=== PATIENT | male | born 1965 | race Caucasian/White ===

== ENCOUNTER → 2016-11-23 | Outpatient (CLI) | payer MEDICAID ==
--- NOTE | 2016-11-23 21:34 | XCELERA REPORT ---
[address] [address] Transthoracic Echocardiogram Report Name: SRAVANI DAO Age: 51 yrs Gender: Male : 1965 Patient Status: Outpatient Patient Location: Study Date: 11/23/2016 01:31 PM Height: 73 in Weight: 225 lb BSA: 2.3 m2 Reason For Study: ABN EKG Ordering Physician: NILTON NORRIS Performed By: Shyann Bello Interpretation Summary The left ventricular ejection fraction is within normal limits. Doppler measurements suggest impaired left ventricular relaxation, which is associated with grade I/IV or mild diastolic dysfunction There is borderline concentric left ventricular hypertrophy. The left ventricle is grossly normal size. Wall motion cannot be accurately commented on, but no definite regional wall motion abnormalities noted. The right ventricle is mildly dilated. The right ventricle appears to be hypertrophied The right ventricular systolic function is normal. The left atrial size is normal. The right atrium is normal in size There is no mitral valve stenosis. There is a trace amount of mitral regurgitation There is no aortic valve stenosis There is a mild amount of aortic regurgitation There is a trace amount of tricuspid regurgitation Tricuspid regurgitation jet envelope not well defined to measure RV systolic pressure accurately. There is no pericardial effusion. MMode/2D Measurements \T\ Calculations RVDd: 2.8 cm LVIDd: 6.0 cm FS: 35.2 % Ao root diam: 4.7 cm IVSd: 0.96 cm LVIDs: 3.9 cm EDV(Teich): 178.2 ml LVPWd: 0.97 cm ESV(Teich): 64.8 ml Ao root area: 17.4 cm2 EF(Teich): 63.6 % LA dimension: 3.4 cm LVOT diam: 2.6 cm LVOT area: 5.4 cm2 Doppler Measurements \T\ Calculations MV E max alfonso: MV P1/2t max alfonso: Ao V2 max: AI max alfonso: 65.6 cm/sec 66.1 cm/sec 145.9 cm/sec 303.0 cm/sec MV A max alfonso: MV P1/2t: 70.1 msec Ao max PG: AI max P.5 cm/sec MVA(P1/2t): 3.1 cm2 8.5 mmHg 36.7 mmHg MV E/A: 0.85 MV dec slope: MART(V,D): 3.6 cm2 AI dec slope: 276.2 cm/sec2 139.1 cm/sec2 MV dec time: AI P1/2t: 0.24 sec 638.0 msec LV V1 max PG: PA V2 max: TR max alfonso: 3.7 mmHg 78.5 cm/sec 212.8 cm/sec LV V1 max: PA max P.5 mmHg TR max P.3 cm/sec 18.1 mmHg Left Ventricle The left ventricle is grossly normal size. There is borderline concentric left ventricular hypertrophy. The left ventricular ejection fraction is within normal limits. Doppler measurements suggest impaired left ventricular relaxation, which is associated with grade I/IV or mild diastolic dysfunction. Wall motion cannot be accurately commented on, but no definite regional wall motion abnormalities noted. Right Ventricle The right ventricle is mildly dilated. The right ventricle appears to be hypertrophied. The right ventricular systolic function is normal. Atria The right atrium is normal in size. The left atrial size is normal. Interarterial septum not well visualized and not well dopplered. Cannot comment on ASD/PFO presence. Mitral Valve The mitral valve leaflets are sclerotic, but show no functional abnormalities. There is no mitral valve stenosis. There is a trace amount of mitral regurgitation. Aortic Valve The aortic valve is mildly calcified. There is no aortic valve stenosis. There is a mild amount of aortic regurgitation. Tricuspid Valve The tricuspid valve is not well visualized, but is grossly normal. There is no tricuspid stenosis. There is a trace amount of tricuspid regurgitation. Tricuspid regurgitation jet envelope not well defined to measure RV systolic pressure accurately. Pulmonic Valve The pulmonic valve is not well visualized. Great Vessels The aortic root is not well visualized. The inferior vena cava appeared normal and decreased > 50% with respiration (RAP 5-10 mmHg). Effusions There is no pericardial effusion. : NILTON NORRIS > Rose Bishop
== END ==
LOC: SP 13:22
PROVIDERS: ATTEND Family Medicine
DX: R94.31 Abnormal electrocardiogram [ECG] [EKG] (principal)
CPT/HCPCS: 93306

== ENCOUNTER → 2016-11-28 | Outpatient (CLI) | payer MEDICAID ==
[2016-11-28 18:01] LABS: ADD HIVPANEL? NO; HIV (1 AND 2) ANTIBODY NEGATIVE (NEGATIVE)
== END ==
LOC: OD 15:33
PROVIDERS: ATTEND Plastic Surgery
DX: Z01.812 Encounter for preprocedural laboratory examination (principal); Z11.4 Encounter for screening for human immunodeficiency virus [HIV]
CPT/HCPCS: 36415; 80074; 86701

== ENCOUNTER → 2017-01-12 | Outpatient (CLI) | payer MEDICAID ==
[2017-01-12 15:16] LABS: ALANINE AMINOTRANSFERASE 19 U/L (21-72); ALBUMIN 3.8 g/dL (3.5-5.0); ALKALINE PHOSPHATASE 68 U/L (38-126); ANION GAP 8 (5-19); ASPARTATE AMINO TRANSFERASE 18 U/L (17-59); BILIRUBIN,DIRECT 0.1 mg/dL (0.0-0.4); BILIRUBIN,TOTAL 0.2 mg/dL (0.2-1.3); BLOOD UREA NITROGEN 7 mg/dL (7-20); CALCIUM 9.8 mg/dL (8.4-10.2); CARBON DIOXIDE 25 mmol/L (22-30); CHLORIDE 109 mmol/L (98-107); CREATININE RESULT 1.03 mg/dL (0.52-1.25); GLUCOSE 96 mg/dL (75-110); POTASSIUM 4.5 mmol/L (3.6-5.0); SODIUM 142.4 mmol/L (137-145); TOTAL PROTEIN 6.7 g/dL (6.3-8.2)
[2017-01-15 10:36] LABS: HEPATITIS C QUANTITATION HCV Not Detected IU/mL (.)
== END ==
LOC: OD 13:54
PROVIDERS: ATTEND Specialist
DX: B18.2 Chronic viral hepatitis C (principal); R10.9 Unspecified abdominal pain
CPT/HCPCS: 36415; 80053; 87522

== ENCOUNTER → 2017-02-01 | Outpatient (CLI) | payer MEDICAID ==
[2017-02-02 10:56] LABS: ALANINE AMINOTRANSFERASE 15 U/L (21-72); ALBUMIN 4.1 g/dL (3.5-5.0); ALKALINE PHOSPHATASE 80 U/L (38-126); ASPARTATE AMINO TRANSFERASE 23 U/L (17-59); BILIRUBIN,DIRECT 0.6 mg/dL (0.0-0.4); BILIRUBIN,TOTAL 0.8 mg/dL (0.2-1.3); TOTAL PROTEIN 7.5 g/dL (6.3-8.2)
[2017-02-03 06:39] LABS: HEPATITIS C VIRUS AB >11.0 s/co ratio (0.0-0.9)
[2017-02-04 10:37] LABS: HEPATITIS C QUANTITATION HCV Not Detected IU/mL (.)
== END ==
LOC: OD 17:32
PROVIDERS: ATTEND Plastic Surgery
DX: B19.20 Unspecified viral hepatitis C without hepatic coma (principal)
CPT/HCPCS: 36415; 80076; 81270; 86803; 86804; 87522

== ENCOUNTER 2017-03-22 23:24 | Emergency (ER) | payer MEDICAID ==
--- NOTE | 2017-03-23 01:47 | ER Document Report ---
ED General - General Chief Complaint: Fall Injury Stated Complaint: FALL/HEAD INJURY Time Seen by Provider: 03/23/17 01:23 Notes: Patient is a 52-year-old male presents with complaint of. Patient has a prosthetic left leg. He is trying to get up and he fell. He says it is a new prosthesis and is getting used to it. He denies any chest pain headache or lightheadedness prior to the fall. He says when he fell he hit the front of his head on the floor and did briefly pass out. Complaints of headache small cut to the forehead. Some neck pain. No other complaints at this time. TRAVEL OUTSIDE OF THE [place] IN LAST 30 DAYS: No - Related Data Allergies/Adverse Reactions: tobramycin [Tobramycin] Allergy (Intermediate, Verified 10/05/16 07:46) Seizures tropicamide [Tropicamide] Allergy (Intermediate, Verified 10/05/16 07:46) Seizures Past Medical History - Social History Smoking Status: Unknown if Ever Smoked Frequency of alcohol use: None Drug Abuse: None Family History: Reviewed & Not Pertinent Patient has suicidal ideation: No Patient has homicidal ideation: No - Past Medical History Cardiac Medical History: Denies: Hx Coronary Artery Disease, Hx Heart Attack, Hx Hypertension Pulmonary Medical History: Reports: Hx Pneumonia - 10 YRS AGO Denies: Hx Asthma, Hx Bronchitis, Hx COPD, Hx Tuberculosis Neurological Medical History: Reports: Hx Seizures - SEIZURE PADS ON AND IN PLACE. Denies: Hx Cerebrovascular Accident Renal/ Medical History: Denies: Hx Peritoneal Dialysis GI Medical History: Reports: Hx Gastroesophageal Reflux Disease, Hx Hiatal Hernia, Hx Irritable Bowel, Hx Ulcer. 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 Denies: Hx Colostomy, Hx Pacemaker - Immunizations Immunizations up to date: Yes Hx Diphtheria, Pertussis, Tetanus Vaccination: No Review of Systems - Review of Systems Notes: My Normal Review Basic REVIEW OF SYSTEMS: CONSTITUTIONAL : Denies fever, chills, or sweats. Denies recent illness. EENT: Denies eye, ear, throat, or mouth pain or symptoms. Denies nasal or sinus congestion. CARDIOVASCULAR: Denies chest pain. RESPIRATORY: Denies cough, cold, or chest congestion. Denies shortness of breath, difficulty breathing, or wheezing. GASTROINTESTINAL: Denies abdominal pain. Denies nausea, vomiting, or diarrhea. Denies constipation. Last BM: MUSCULOSKELETAL: Denies neck or back pain or joint pain or swelling. SKIN: Denies rash or skin lesions. NEUROLOGICAL: brief loss of consciousness. has aheadache. Denies weakness or paralysis or loss of use of either side. Denies problems with gait or speech. Denies sensory or motor loss. ALL OTHER SYSTEMS REVIEWED AND NEGATIVE. Physical Exam - Vital signs Vitals: Temp Pulse Resp BP Pulse Ox 98.1 F 64 16 141/77 H 98 03/22/17 23:32 03/22/17 23:32 03/22/17 23:32 03/22/17 23:32 03/22/17 23:32 - Notes Notes: General Appearance: Well nourished, alert, cooperative, no acute distress, mild obvious discomfort. Vitals: reviewed, See vital signs table. Head: small, nongaping laceartion over forehead. Eyes: PERRL, EOMI, Conjuctiva clear Mouth: No decreasd moisture Neck: Supple, some midline neck tenderness to palpation Lungs: No wheezing, No rales, No rhonci, No accessory muscle use, good air exchange bilaterally. Heart: Normal rate, Regular rythm, No murmur, no rub Abdomen: Normal BS, soft, No rigidity, No abdominal tenderness, No guarding, no rebound, no abdominal masses, no organomegaly Extremities: strength 5/5 in all extremities, left below the knee amputation, good pulses in all extremities, no swelling or tenderness in the extremities, no edema. Skin: warm, dry, appropriate color, no rash Neuro: speech clear, oriented x 3, normal affect, responds appropriately to questions. Cranial nerves 2-12 are intact, distal sensation intact. Patient moves all extremities without difficulty Course - Vital Signs Vital signs: Temp Pulse Resp BP Pulse Ox 98.1 F 64 22 H 128/89 H 100 03/22/17 23:32 03/22/17 23:32 03/23/17 03:21 03/23/17 03:11 03/23/17 03:21 - Transfer of Care Notes: 03/23/17 03:26 CT scans are negative. He looks and feels well. Says he has no difficulty walking is putting on his prosthetic leg without any difficulty. Patient will be discharged home. He is encouraged to return to the ER if there is any redness or swelling to the area of the cut, if he has severe headache or vomiting, or she feels unwell. Patient agrees with plan and will be discharged home. Dictation of this chart was performed using voice recognition software; therefore, there may be some unintended grammatical errors. Procedures - Laceration/Wound Repair frontal laceration Wound length (cm): 2 Wound's Depth, Shape: Superficial, Linear Laceration pre-procedure: Other - peroxide Wound explored: Clean Wound Repaired With: Dermabond Complications: No Discharge - Discharge Clinical Impression: Fall Qualifiers: Encounter type: initial encounter Qualified Code(s): W19.XXXA - Unspecified fall, initial encounter Scalp laceration Qualifiers: Encounter type: initial encounter Qualified Code(s): S01.01XA - Laceration without foreign body of scalp, initial encounter Condition: Good Disposition: HOME, SELF-CARE Additional Instructions: Please wait 24 hours before cleaning the cut. Please clean it with soap and water after 24 hours. no scrubbing. Please return to the ER if you have worsening severe headaches, vomiting, or feel uwnell. Referrals: NILTON NORRIS MD [Primary Care Provider] - Follow up as needed
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
[2017-03-23] MEDS ORDERED: IBUPROFEN 600 MG TABLET PO ONE (03:19)
[2017-03-23 03:27] VITALS: BP 139/97
== END 2017-03-23 03:28 | disposition home or self-care (01) ==
LOC: ER 23:24
PROC: 0HQ0XZZ Repair Scalp Skin, External Approach (ICD-10-PCS; principal; 2017-03-22)
DX: S01.01XA Laceration without foreign body of scalp, initial encounter (principal); R51 Headache; W19.XXXA Unspecified fall, initial encounter
CPT/HCPCS: 99284; 70450; 72125; 12001; J3490

== ENCOUNTER → 2017-05-08 | Outpatient (CLI) | payer MEDICAID ==
--- NOTE | 2017-05-08 14:11 | RADIOLOGY REPORT (SQ) ---
EXAM DESCRIPTION: CHEST PA/LATERAL COMPLETED DATE/TIME: 05/08/2017 1:59 pm REASON FOR STUDY: CHRONIC OBSTRUCTIVE PULMONARY DISEASE, UNSPECIFIED COMPARISON: None. NUMBER OF VIEWS: Two view. TECHNIQUE: Frontal and lateral radiographic views of the chest acquired. LIMITATIONS: None. FINDINGS: LUNGS AND PLEURA: No opacities, masses or pneumothorax. No pleural effusion. MEDIASTINUM AND HILAR STRUCTURES: No masses or contour abnormalities. HEART AND VASCULATURE: Heart normal size. No evidence for failure. BONY STRUCTURES: No acute findings. HARDWARE: None. OTHER: No other significant finding. IMPRESSION: NO SIGNIFICANT RADIOGRAPHIC FINDING IN THE CHEST. TECHNICAL DOCUMENTATION: JOB ID: [id number] [employer]- All Rights Reserved
== END ==
LOC: OD 13:49
PROVIDERS: ATTEND Physician Assistant
DX: J44.9 Chronic obstructive pulmonary disease, unspecified (principal)
CPT/HCPCS: 71020

== ENCOUNTER 2017-06-18 22:20 | Emergency (ER) | payer OTHER, MEDICAID ==
[2017-06-19] MEDS ORDERED: HYDROCODONE/ACETAMINOPHEN 5-325 MG 6 TAB/DSPK PO PRN (00:24)
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
[2017-06-19 00:40] VITALS: BP 139/87
== END 2017-06-19 00:44 | disposition home or self-care (01) ==
LOC: ER 22:20
DX: R07.9 Chest pain, unspecified (principal); M25.512 Pain in left shoulder; M54.5 Low back pain; V43.52XA Car driver injured in collision with other type car in traffic accident, initial encounter; Z89.512 Acquired absence of left leg below knee; Z86.14 Personal history of Methicillin resistant Staphylococcus aureus infection
CPT/HCPCS: 99284

== ENCOUNTER 2017-06-28 19:41 | Emergency (ER) | payer OTHER, MEDICAID ==
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
[2017-06-28 22:12] LABS: ABSOLUTE BASOPHILS # (AUTO) 0.1 10^3/uL (0.0-0.2); ABSOLUTE EOSINOPHILS # (AUTO) 0.2 10^3/uL (0.0-0.6); ABSOLUTE LYMPHOCYTES (AUTO) 2.1 10^3/uL (0.5-4.7); ABSOLUTE MONOCYTES (AUTO) 1.6 10^3/uL (0.1-1.4); ABSOLUTE NEUT (AUTO) 8.8 10^3/uL (1.7-8.2); BASOPHILS % (AUTO) 0.9 % (0-2); EOSINOPHILS % (AUTO) 1.7 % (0-6); HEMATOCRIT 37.8 % (37.9-51.0); HGB HCT DIFFERENCE 1.2; LYMPHOCYTES % (AUTO) 16.1 % (13-45); MEAN CORPUSCULAR HEMOGLOBIN 28.9 pg (27.0-33.4); MEAN CORPUSCULAR HGB CONC 34.5 g/dL (32.0-36.0); MEAN CORPUSCULAR VOLUME 84 fl (80-97); MONOCYTES % (AUTO) 12.4 % (3-13); RED BLOOD COUNT 4.51 10^6/uL (4.35-5.55); RED CELL DISTRIBUTION WIDTH 16.3 % (11.5-14.0); SEGMENTED NEUTROPHILS % (AUTO) 68.9 % (42-78); WHITE BLOOD COUNT 12.8 10^3/uL (4.0-10.5)
[2017-06-28 22:33] LABS: ANION GAP 12 (5-19); BLOOD UREA NITROGEN 8 mg/dL (7-20); CALCIUM 9.4 mg/dL (8.4-10.2); CARBON DIOXIDE 27 mmol/L (22-30); CHLORIDE 102 mmol/L (98-107); CREATININE RESULT 0.95 mg/dL (0.52-1.25); GLUCOSE 79 mg/dL (75-110); POTASSIUM 3.8 mmol/L (3.6-5.0); SODIUM 140.7 mmol/L (137-145)
[2017-06-28] MEDS ORDERED: LIDOCAINE 1% INJ-PF (10 MG/ML) 30 ML SDV INFIL ONE (22:49)
[2017-06-28] MEDS ORDERED: SULFAMETHOXAZOLE/TRIMETHOPRIM 800-160 MG TABLET PO ONE (22:49)
[2017-06-28] MEDS ORDERED: CEFTRIAXONE INJ 1000 MG VIAL IM ONE (22:49)
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
[2017-06-29 00:52] VITALS: BP 124/81
== END 2017-06-28 23:30 | disposition home or self-care (01) ==
LOC: ER 19:41
DX: L03.116 Cellulitis of left lower limb (principal); L98.9 Disorder of the skin and subcutaneous tissue, unspecified; M79.605 Pain in left leg; Z89.512 Acquired absence of left leg below knee
CPT/HCPCS: 99283; 96372; 36415; 85025; 80048; J3490; J0696

== ENCOUNTER 2017-07-01 12:34 | Emergency (ER) | payer OTHER, MEDICAID ==
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
[2017-07-01 14:23] VITALS: BP 113/68
== END 2017-07-01 14:23 | disposition home or self-care (01) ==
LOC: ER 12:34
DX: L02.416 Cutaneous abscess of left lower limb (principal); Z89.512 Acquired absence of left leg below knee; R07.81 Pleurodynia
CPT/HCPCS: 71020; 99283

== ENCOUNTER 2017-11-06 17:43 | Emergency (ER) | payer MEDICAID ==
--- NOTE | 2017-11-06 19:43 | RADIOLOGY REPORT (SQ) ---
EXAM DESCRIPTION: KNEE RIGHT 3 VIEWS COMPLETED DATE/TIME: 11/06/2017 7:05 pm REASON FOR STUDY: fall COMPARISON: Right knee four views 03/15/2016 NUMBER OF VIEWS: Four views. TECHNIQUE: AP, lateral, and both oblique radiographic images acquired of the right knee. LIMITATIONS: None. FINDINGS: MINERALIZATION: Normal. BONES: No acute fracture or dislocation. No worrisome bone lesions. JOINT: No significant suprapatellar knee joint effusion. Mild prepatellar soft tissue swelling. SOFT TISSUES: Mild prepatellar soft tissue swelling. No radio-opaque foreign body. OTHER: No other significant finding. IMPRESSION: Mild prepatellar soft tissue swelling. TECHNICAL DOCUMENTATION: JOB ID: [id number] [employer]- All Rights Reserved
--- NOTE | 2017-11-06 19:45 | RADIOLOGY REPORT (SQ) ---
EXAM DESCRIPTION: ELBOW RIGHT OVER 2 VIEWS COMPLETED DATE/TIME: 11/06/2017 7:05 pm REASON FOR STUDY: fall COMPARISON: None. NUMBER OF VIEWS: Four views. TECHNIQUE: AP, lateral, and both oblique radiographic images acquired of the right elbow. LIMITATIONS: None. FINDINGS: MINERALIZATION: Normal. BONES: No acute fracture or dislocation. No worrisome bone lesions. JOINT: No elbow joint effusion. There is joint space narrowing and bony spurring at the radiohumeral and ulnohumeral joints and along the proximal radioulnar joint. No gross intra-articular loose bodi es. SOFT TISSUES: Dorsal elbow soft tissue swelling. No foreign body. OTHER: No other significant finding. IMPRESSION: Dorsal elbow soft tissue swelling without underlying fracture or joint effusion. Osteoarthritis right elbow TECHNICAL DOCUMENTATION: JOB ID: [id number] [employer]- All Rights Reserved
--- NOTE | 2017-11-06 20:22 | ER Document Report ---
ED Fall - General Chief Complaint: Fall Stated Complaint: FALL/ Time Seen by Provider: 11/06/17 19:20 Notes: Patient is a 52-year-old male who presents emergency department after a fall on Monday. Patient is a left lower extremity amputation from previous trauma. Patient states that his prosthetic had different cycle and so he fell and lost his balance landing on his right side. Patient admits to pain in his right elbow as well as his right knee. Patient states that he has been able to ambulate. His main concern was that he thought he had a subjective fever at home responded well to Tylenol for the past 2 days. He states that he can move his elbow with a little little sore he denies any significant redness but admits to swelling that is improved with a compression brace that he wore throughout the day. States that it feels a lot better afterwards. Otherwise he denies any numbness or tingling in his hand. Past medical history significant for osteoarthritis Primary care is with Dr. Norris. Has a follow-up visit tomorrow. TRAVEL OUTSIDE OF THE [place] IN LAST 30 DAYS: No - Related data Allergies/Adverse Reactions: tobramycin [Tobramycin] Allergy (Intermediate, Verified 11/06/17 17:45) Seizures tropicamide [Tropicamide] Allergy (Intermediate, Verified 11/06/17 17:45) Seizures Past Medical History - Social History Smoking Status: Smoker,Current Status Unk Family History: Reviewed & Not Pertinent - Past Medical History Cardiac Medical History: Denies: Hx Coronary Artery Disease, Hx Heart Attack, Hx Hypertension Pulmonary Medical History: Reports: Hx COPD - IN BEGINNING STAGES PER PT, NO MEDS YET, Hx Pneumonia - 10 YRS AGO Denies: Hx Asthma, Hx Bronchitis, Hx Tuberculosis Neurological Medical History: Reports: Hx Seizures - SEIZURE 5 YRS AGO FROM MED , NO SEIZURE IN 5 YRS. Denies: Hx Cerebrovascular Accident Renal/ Medical History: Denies: Hx Peritoneal Dialysis GI Medical History: Reports: Hx Gastroesophageal Reflux Disease, Hx Hiatal Hernia, Hx Irritable Bowel, Hx Ulcer. Denies: Hx Crohn's Disease, Hx Liver Failure, Hx Pancreatitis Musculoskeltal Medical History: Reports Hx Arthritis - BACK, Denies Hx Fibromyalgia, Denies Hx Multiple Sclerosis, Denies Hx Muscular Dystrophy, Reports Hx Musculoskeletal Trauma - w/ left BKA Psychiatric Medical History: Reports: Hx Bipolar Disorder, Hx Depression, Hx Schizophrenia Denies: Hx Dementia, Hx Post Traumatic Stress Disorder Traumatic Medical History: Reports: Hx Fractures - r arm, jaw, fingers Infectious Medical History: Reports: Hx MRSA Past Surgical History: Reports: Hx Orthopedic Surgery - Left hand, left BKA, Hx Tonsillectomy. Denies: Hx Colostomy, Hx Pacemaker - Immunizations Immunizations up to date: Yes Hx Diphtheria, Pertussis, Tetanus Vaccination: Yes Review of Systems - Review of Systems Constitutional: See HPI Cardiovascular: No symptoms reported Respiratory: No symptoms reported Gastrointestinal: No symptoms reported Musculoskeletal: See HPI Skin: See HPI Neurological/Psychological: No symptoms reported -: Yes All other systems reviewed and negative Physical Exam - Vital signs Vitals: Temp Pulse Resp BP Pulse Ox 99.2 F 103 H 14 109/71 96 11/06/17 17:49 11/06/17 17:49 11/06/17 17:49 11/06/17 17:49 11/06/17 17:49 - Notes Notes: PHYSICAL EXAM GENERAL: Alert, interacts well. HEAD: Normocephalic, atraumatic. EXTREMITIES: Moves all 4 extremities spontaneously. Full range of motion of the right elbow without any tenderness, deformity, edema. Shoulder full range of motion nontender, right wrist full range of motion nontender. Capillary refill less than 2 seconds in all upper extremity digits. Etcher Hand strength equal bilaterally. Right knee full range of motion nontender. Gait stable able to ambulate without assistance. No edema, radial and dorsalis pedis pulses 2/4 bilaterally. No cyanosis. NEUROLOGICAL: Alert and oriented x4. Normal speech. PSYCH: Normal affect, normal mood. SKIN: Warm, dry, normal turgor.Abrasion noted over the extensor surface of the right elbow without significant tenderness, mild surrounding erythema without induration. Course - Re-evaluation Re-evalutation: 11/06/17 20:21 Patient is a 52-year-old male who is hemodynamically stable, no acute distress and afebrile. Despite mild overlying erythema with associated abrasion, joint with low clinical suspicion for septic joint given patient with full range of motion, no significant tenderness, erythema. No evidence of a gout flare, dislocation, or fracture on exam and imaging. Vitals wnl. At this time, I do not see an indication for labs or further imaging. Will discharge with conservative measures, return precautions, and follow-up recommendations. - Vital Signs Vital signs: Temp Pulse Resp BP Pulse Ox 99.2 F 103 H 14 109/71 96 11/06/17 17:49 11/06/17 17:49 11/06/17 17:49 11/06/17 17:49 11/06/17 17:49 - Diagnostic Test Radiology reviewed: Image reviewed, Reports reviewed Discharge - Discharge Bad tableCondition: Good Disposition: HOME, SELF-CARE Additional Instructions: You do not have evidence of a fracture on today's xrays. Your pain is likely to do soft tissue swelling and inflammation. This can last up to 6 weeks before completely resolving. You should continue to apply ice to the area regularly, keep the affected area elevated, and take ibuprofen 600mg every 6 hours as needed for pain. You have also been given a antibiotic to prevent any significant infection in the right elbow. please return if you have worsening pain, weakness, numbness, notice increasing redness or swelling to the area, develop a fever, or have any other symptoms that are concerning to you. Prescriptions: Cephalexin Monohydrate [Keflex 500 mg Capsule] 500 mg PO QID #20 capsule Referrals: NILTON NORRIS MD [Primary Care Provider] - Follow up tomorrow
[2017-11-06] MEDS ORDERED: CEPHALEXIN 500 MG CAPSULE PO ONE (20:24)
[2017-11-06 20:36] VITALS: BP 110/78
== END 2017-11-06 20:36 | disposition home or self-care (01) ==
LOC: ER 17:43
DX: M25.521 Pain in right elbow (principal); M25.561 Pain in right knee; R50.9 Fever, unspecified; M79.89 Other specified soft tissue disorders; W19.XXXA Unspecified fall, initial encounter; Z89.512 Acquired absence of left leg below knee
CPT/HCPCS: 99283

== ENCOUNTER → 2017-11-29 | Outpatient (CLI) | payer MEDICAID ==
--- NOTE | 2017-11-29 17:44 | RADIOLOGY REPORT (SQ) ---
EXAM DESCRIPTION: MRI RT LOWER JOINT WITHOUT COMPLETED DATE/TIME: 11/29/2017 5:12 pm REASON FOR STUDY: M25.561 PAIN IN RIGHT KNEE M25.561 PAIN IN RIGHT KNEE COMPARISON: None. TECHNIQUE: Rightknee images acquired and stored on PACS. Multiplanar images include fat sensitive s equences as T1, water sensitive sequences as FST2 or STIR, cartilage sensitive sequences as FSPD, and gradient echo sequences. LIMITATIONS: None. FINDINGS: JOINT AND BURSAE: Small effusion. BONE CORTEX AND MARROW: No alteration of signal to suggest marrow replacement. No worrisome bone lesi ons. No occult fracture. ACL: Intact. No degeneration or ganglion cyst. PCL: Intact. MCL: Intact. No periligamentous edema or fluid. LCL: Intact. No periligamentous edema or fluid. MEDIAL MENISCUS: No tears. No abnormal signal. LATERAL MENISCUS: No tears. Mild posterior horn myxoid signal. MEDIAL COMPARTMENT: 5 mm focal area of moderate chondromalacia passed osteochondral irregularity in t he anteromedial trochlear groove portion of the femoral condyle, minimal reactive marrow edema. LATERAL COMPARTMENT: Cartilage shows mild medial trochlear groove chondromalacia. No bone bruises or reactive marrow edema. No osteophytes. PATELLA: Mild central patellar chondromalacia. No subchondral cysts. Medial and lateral retinacula in tact. EXTENSOR MECHANISM: Intact. Quadriceps tendon shows mild tendinosis at the superior patellar insertio n. The patella tendon is normal. SOFT TISSUES: Small Rodriguez cyst. Otherwise Adjacent muscles and subcutaneous tissues normal. Normal flow void in popliteal artery and vein. OTHER: No other significant finding. IMPRESSION: No evidence for meniscal or ligament tear. Quadriceps tendon shows mild tendinosis at th e superior patellar insertion. Small joint effusion. TECHNICAL DOCUMENTATION: JOB ID: [id number] [place]-72 2010 [employer]- All Rights Reserved
== END ==
LOC: RAD 16:26
PROVIDERS: ATTEND Orthopaedic Surgery
DX: M25.561 Pain in right knee (principal)

== ENCOUNTER → 2018-01-12 | Outpatient (CLI) | payer MEDICAID ==
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
== END ==
LOC: SP 10:31
PROVIDERS: ATTEND Family Medicine
DX: R60.0 Localized edema (principal)
CPT/HCPCS: 93971

== ENCOUNTER 2018-02-13 09:24 | Day surgery (SDC) | payer MEDICAID ==
[2018-01-30 13:32] LABS: HEMATOCRIT 46.8 % (37.9-51.0); HEMOGLOBIN 15.5 g/dL (13.5-17.0); MEAN CORPUSCULAR HGB CONC 33.2 g/dL (32.0-36.0); MEAN CORPUSCULAR VOLUME 88 fl (80-97); PLATELET COUNT 214 10^3/uL (150-450); RED BLOOD COUNT 5.35 10^6/uL (4.35-5.55); RED CELL DISTRIBUTION WIDTH 18.7 % (11.5-14.0); WHITE BLOOD COUNT 11.8 10^3/uL (4.0-10.5)
--- NOTE | 2018-01-30 13:32 | EKG REPORT ---
SEVERITY:- OTHERWISE NORMAL ECG - SINUS BRADYCARDIA : Confirmed by: Everardo Ritter MD 30-Jan-2018 13:32:09
[2018-01-30 13:46] LABS: INTERNATIONAL RATION (INR) 0.89; PROTHROMBIN TIME 12.5 SEC (11.4-15.4)
[2018-01-30 14:01] LABS: ANION GAP 13 (5-19); BLOOD UREA NITROGEN 13 mg/dL (7-20); CALCIUM 10.4 mg/dL (8.4-10.2); CARBON DIOXIDE 30 mmol/L (22-30); CHLORIDE 100 mmol/L (98-107); GLUCOSE 86 mg/dL (75-110); POTASSIUM 5.2 mmol/L (3.6-5.0)
[~2018-02-13 09:24] MED LIST: CEFAZOLIN 1 GM/D5W RTU 1 GM/50 ML RTUPB IV PRN; FENTANYL CITRATE INJ/PF 100 MCG/2 ML AMPUL ONE; LACTATED RINGERS 1000 ML IV PRN; LIDOCAINE 1%/EPINEPHRINE INJ 20 ML VIAL ONE; MIDAZOLAM 2 MG/2 ML INJ ONE; PROPOFOL INJ 200 MG/20 ML VIAL IV ONE; SODIUM BICARBONATE 8.4% INJ 50 MEQ/50 ML DISP.SYRIN ONE
[2018-02-13] MEDS ORDERED: FENTANYL CITRATE INJ/PF 100 MCG/2 ML AMPUL IV PRN ×3 (10:02)
[2018-02-13] MEDS ORDERED: ONDANSETRON HCL INJ/PF 4 MG/2 ML SDV IV PRN (10:02)
[2018-02-13] MEDS ORDERED: DIPHENHYDRAMINE HCL 50 MG/ML VIAL IV PRN (10:02)
--- NOTE | 2018-02-13 11:27 | Operative Report ---
Operative Report DATE OF SURGERY: 02/13/18 PREOPERATIVE DIAGNOSIS: Mass of the upper back POSTOPERATIVE DIAGNOSIS: Same OPERATION: Excision of mass of upper back with closure. Size 3.25 cm. Mass extended down through the deep fascia SURGEON: CHEKO VALERA ANESTHESIA: LMAC TISSUE REMOVED OR ALTERED: Large cyst of the back COMPLICATIONS: None ESTIMATED BLOOD LOSS: Minimal PROCEDURE: Location of the masses were identified before bringing the patient to the operating room. Patient was laid on the table in a prone position. The patient was then prepped with a Betadine scrub and a Betadine solution. The patient was then draped in a sterile and aseptic fashion. A timeout was performed after marking the areas to be resected. The area was anesthetized with 1% lidocaine with epinephrine and bicarb. We then went ahead and incised elliptically around the mass. The mass was then dissected 360 and removed in toto. Mass was removed from the subcutaneous tissue and it extended down into the deep fascia. The mass was rather densely adherent and scarred in position. [id number] we dissected and had a cut through the deep fascia in order to get it removed. We then obtained hemostasis with the bipolar. The wound was irrigated with a Betadine sterile water solution. Again hemostasis was confirmed. The closure was then performed closing the subcutaneous tissue with 3-0 Vicryl three-point sutures in order to obliterate the space that was created after the mass had been removed. The skin was closed with 3-0 PDS. Additional support 3-0 PDS sutures were placed in order to support the closure. Tincture benzoin Steri-Strips and light pressure dressing was applied Patient was then reversed from anesthesia and taken to the [facility] for recovery Patient tolerated procedure well there were no complications. This dictation was performed using [place] naturally speaking. If there are any inconsistencies please contact the surgeon. Subjective: No complaints Objective: Vital signs stable afebrile No bleeding Dressing intact Assessment and plan: Doing well. Elevate the operative site. Resume medications. Take antibiotics for 1 day Follow-up Full instructions were given to the patient and family and they understand Portions of this note may be dictated using [employer] voice recognition software. Occasional variations and spelling and vocabulary could be possible and are unintentional. Additionally, there is a chance that some errors may not be caught or corrected. Please notify the offer of any discrepancies noted or if any statements are unclear.
--- NOTE | 2018-02-13 11:29 | Discharge Summary ---
Discharge Summary (SDC) - Discharge Final Diagnosis: Large deep mass of the back extending subfascial Date of Surgery: 02/13/18 Condition: Good Treatment or Instructions: Leave the top dressing on for 2 days, then removed. Leave the steri-strip tapes on for 5 days, then removal. Then cleaning wound with peroxide and apply Neosporin/bacitracin 3 times per day. Antibiotics for 1 day, then discontinue. Elevate operative area to decrease swelling. Do not strain, or lift heavy objects. Call for excessive bleeding, increased temperature of 101, uncontrolled pain, or excessive nausea or vomiting. You may reach Dr. Hale through his office at [phone]. In the event of an emergency after hours, then contact Dr. Hale through [facility]. Return to the office for a postop check on . The time will be scheduled by the nursing staff of [facility] prior to discharge. Please give the patient a copy of their labs and EKG so they can bring this to their PMD. Thank you Portions of this note may be dictated using [employer] voice recognition software. Occasional variations and spelling and vocabulary could be possible and are unintentional. Additionally, there is a chance that some errors may not be caught or corrected. Please notify the offer of any discrepancies noted or if any statements are unclear. Referrals: NILTON NORRIS MD [Primary Care Provider] - Discharge Diet: As Tolerated Report the Following to Your Physician Immediately: Unusual Bleeding - Limited activity. Do not stretch the back. Top dressing off in 2 days. Leave Steri- Strips on unless they get contaminated until you are seen in the office. Use a waterproof dressing to cover the Steri-Strips when showering. Take antibiotics for 2 days before the surgery. Resume any medicines that you had stopped. Follow-up at my office.
[2018-02-13 13:45] VITALS: BP 125/76
== END 2018-02-13 13:15 | disposition home or self-care (01) ==
LOC: OROUT 09:24
PROVIDERS: ATTEND Plastic Surgery
DX: L72.3 Sebaceous cyst (principal); F17.210 Nicotine dependence, cigarettes, uncomplicated; M19.90 Unspecified osteoarthritis, unspecified site; G40.909 Epilepsy, unspecified, not intractable, without status epilepticus; Z79.899 Other long term (current) drug therapy; Z88.8 Allergy status to other drugs, medicaments and biological substances
CPT/HCPCS: 93005; 36415; 85027; 85610; 85730; 80048; 93010; 11404; J2250; J0690; J3010; J3490 ×2; J2704; 300

== ENCOUNTER → 2018-08-01 | Outpatient (CLI) | payer MEDICAID ==
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
== END ==
LOC: RAD 19:22
PROVIDERS: ATTEND Family Medicine
DX: M89.511 Osteolysis, right shoulder (principal); M19.011 Primary osteoarthritis, right shoulder

== ENCOUNTER 2019-12-26 16:59 | Emergency (ER) | payer MEDICAID, OTHER ==
[2019-12-26] MEDS ORDERED: ONDANSETRON HCL INJ/PF 4 MG/2 ML SDV IV ONE (17:21)
[2019-12-26] MEDS ORDERED: MORPHINE SULFATE 10 MG/ML INJ IV ONE (17:22)
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
[2019-12-26 17:45] LABS: ABSOLUTE LYMPHOCYTES (AUTO) 1.4 10^3/uL (0.5-4.7); ABSOLUTE MONOCYTES (AUTO) 1.2 10^3/uL (0.1-1.4); ABSOLUTE NEUT (AUTO) 12.1 10^3/uL (1.7-8.2); BASOPHILS % (AUTO) 0.3 % (0-2); EOSINOPHILS % (AUTO) 0.1 % (0-6); HEMOGLOBIN 14.2 g/dL (13.5-17.0); LYMPHOCYTES % (AUTO) 9.4 % (13-45); MEAN CORPUSCULAR HEMOGLOBIN 31.5 pg (27.0-33.4); MEAN CORPUSCULAR HGB CONC 34.5 g/dL (32.0-36.0); MEAN CORPUSCULAR VOLUME 91 fl (80-97); MONOCYTES % (AUTO) 8.3 % (3-13); PLATELET COUNT 300 10^3/uL (150-450); RED BLOOD COUNT 4.49 10^6/uL (4.35-5.55); RED CELL DISTRIBUTION WIDTH 14.4 % (11.5-14.0); SEGMENTED NEUTROPHILS % (AUTO) 81.9 % (42-78); TOTAL CELLS COUNTED % (AUTO) 100 %; WHITE BLOOD COUNT 14.8 10^3/uL (4.0-10.5)
[2019-12-26 17:49] LABS: INTERNATIONAL RATION (INR) 0.92; PROTHROMBIN TIME 12.4 SEC (11.4-15.4)
[2019-12-26 17:50] LABS: PARTIAL THROMBOPLASTIN TIME 25.5 SEC (23.5-35.8)
[2019-12-26 18:05] LABS: ALBUMIN 4.5 g/dL (3.5-5.0); ALKALINE PHOSPHATASE 88 U/L (38-126); ANION GAP 9 (5-19); ASPARTATE AMINO TRANSFERASE 46 U/L (17-59); BILIRUBIN,DIRECT 0.1 mg/dL (0.0-0.4); BILIRUBIN,TOTAL 0.6 mg/dL (0.2-1.3); BLOOD UREA NITROGEN 16 mg/dL (7-20); CALCIUM 10.4 mg/dL (8.4-10.2); CARBON DIOXIDE 24 mmol/L (22-30); CHLORIDE 103 mmol/L (98-107); GLUCOSE 130 mg/dL (75-110); POTASSIUM 4.7 mmol/L (3.6-5.0); TOTAL PROTEIN 7.9 g/dL (6.3-8.2)
[2019-12-26 19:20] LABS: APPEARANCE,URINE CLEAR; BILIRUBIN,URINE NEGATIVE (NEGATIVE); COLOR,URINE STRAW; GLUCOSE, URINE NEGATIVE (NEGATIVE); KETONES,URINE NEGATIVE (NEGATIVE); LEUKOCYTE ESTERASE,URINE NEGATIVE (NEGATIVE); NITRITE,URINE NEGATIVE (NEGATIVE); PROTEIN,URINE NEGATIVE (NEGATIVE); URINE SPECIFIC GRAVITY 1.004; UROBILINOGEN,URINE NEGATIVE mg/dL (<2.0)
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
[2019-12-26 20:38] VITALS: BP 124/94
--- NOTE | 2019-12-26 21:47 | EKG REPORT ---
SEVERITY:- NORMAL ECG - SINUS RHYTHM : Confirmed by: Tara Mcdonald MD 26-Dec-2019 21:46:20
== END 2019-12-26 20:43 | disposition home or self-care (01) ==
LOC: ER 16:59
DX: S16.1XXA Strain of muscle, fascia and tendon at neck level, initial encounter (principal); S01.21XA Laceration without foreign body of nose, initial encounter; S20.211A Contusion of right front wall of thorax, initial encounter; S01.411A Laceration without foreign body of right cheek and temporomandibular area, initial encounter; R07.81 Pleurodynia; M54.2 Cervicalgia; R10.10 Upper abdominal pain, unspecified; V43.52XA Car driver injured in collision with other type car in traffic accident, initial encounter; K57.30 Diverticulosis of large intestine without perforation or abscess without bleeding; J44.9 Chronic obstructive pulmonary disease, unspecified; F31.9 Bipolar disorder, unspecified; F20.9 Schizophrenia, unspecified; Z79.899 Other long term (current) drug therapy; Z79.891 Long term (current) use of opiate analgesic; Z87.891 Personal history of nicotine dependence; Z88.1 Allergy status to other antibiotic agents; Z88.8 Allergy status to other drugs, medicaments and biological substances
CPT/HCPCS: 93005; 99284; 96374; 96375; 36415; 85025; 85610; 85730; 80053; 81001; 70450; 71260; 72125; 74177; 93010; J2270; J2405

== ENCOUNTER → 2020-10-14 | Outpatient (CLI) | payer MEDICAID ==
--- NOTE | 2020-10-14 23:38 | EKG REPORT ---
SEVERITY:- NORMAL ECG - SINUS RHYTHM : Confirmed by: Rose Bishop 14-Oct-2020 23:38:05
== END ==
LOC: RT 12:27
PROVIDERS: ATTEND Internal Medicine
DX: I10 Essential (primary) hypertension (principal)
CPT/HCPCS: 93005; 93010